=== PATIENT | female | born 1985 | race Caucasian/White ===

== ENCOUNTER 2016-11-12 16:51 | Emergency (ER) | payer OTHER ==
[~2016-11-12] VITALS: Ht 167.6 cm; Wt 68.0 kg
[~2016-11-12 16:51] MED LIST: ULT50 PO; [UNRECOGNIZED DRUG - REMARK]
[2016-11-12 16:58] VITALS: Ht 167.6 cm; Wt 68.0 kg
[2016-11-12] MEDS ORDERED: LIDOCAINE/MYLANTA 40 ML BTL PO ONE (18:30)
--- NOTE | 2016-11-12 18:31 | ERD ---
ER Documentation Chief Complaint Date/Time DATE: 11/12/16 TIME: 18:29 Chief Complaint lower abdominal pain today HPI 31-year-old female otherwise healthy complains of epigastric abdominal pain that started yesterday. Pain is described as achy, 10 sharp and radiates to the lower abdomen. She states that she is not taking anything for pain given the decrease in appetite. She has not had any fever, chills, nausea, vomiting or diarrhea. She reports mild constipation, she has not had any bowel movements today. ROS All systems reviewed and are negative except as per history of present illness. Medications Home Meds Active Scripts Nitrofurantoin Monohyd Macrocr* (Macrobid*) 100 Mg Capsr, 100 MG PO BID for 7 Days, CAP Prov:CLARITZA SILVA PA-C 11/12/16 Ranitidine Hcl* (Zantac*) 150 Mg Tablet, 150 MG PO BID Y for EPIGASTRIC PAIN, # 30 TAB Prov:CLARITZA SILVA PA-C 11/12/16 Tramadol HCl (Tramadol HCl) 50 Mg Tab, 50 MG PO Q4 Y for PAIN, #10 TAB Prov:CLARITZA SILVA PA-C 04/11/15 Reported Medications [pt denies meds & allergies] No Conflict Check 10/27/13 Allergies Allergies: Coded Allergies: No Known Allergy (Unverified , 10/27/13) PMhx/Soc Medical and Surgical Hx: pt denies Medical Hx History of Surgery: Yes (inguinal hernia) Anesthesia Reaction: No Hx Neurological Disorder: No Hx Respiratory Disorders: No Hx Cardiac Disorders: No Hx Psychiatric Problems: Yes (anxiety) Hx Miscellaneous Medical Probl: No Hx Alcohol Use: No Hx Substance Use: No Hx Tobacco Use: No Smoking Status: Never smoker Physical Exam Vitals Vital Signs Date Time Temp Pulse Resp B/P Pulse Ox O2 Delivery O2 Flow Rate FiO2 11/12/16 16:58 98.3 77 18 123/56 98 Physical Exam General: Well-developed, well-nourished. The patient appears in no acute distress. HEENT: Head is normocephalic, atraumatic. No scleral icterus. Pupils are equal , round, and reactive. Oral mucous membranes are moist. No pharyngeal erythema. Neck: Supple. Nontender. Lungs: Clear to auscultation. Normal air movement. Heart: Regular rate and rhythm. S1 and S2 are normal. No murmurs, gallops, or rubs. Abdomen: Soft, mildly tender in the epigastric region, no peritoneal signs, guarding or masses, nondistended. Bowel sounds are normoactive. Negative Hernandez sign. No McBurney's tenderness. Extremities: No clubbing or cyanosis. Normal pulses. Moving extremities x 4. No weakness. Neurologic: Alert and oriented 3. No focal deficits. Skin: Normal turgor. No rash or lesions. Result Diagram: 11/12/16183411/12/161834 Results 24 hrs Laboratory Tests Test 11/12/16 18:35 11/12/16 18:40 Alanine Aminotransferase (ALT/SGPT) 19IU/L Albumin 4.1g/dl Albumin/Globulin Ratio 1.24 Alkaline Phosphatase 47IU/L Anion Gap 14 Aspartate Amino Transf (AST/SGOT) 16IU/L Basophils # 0.110^3/ul Basophils % 0.9% Blood Morphology Comment Blood Urea Nitrogen 15mg/dl Calcium Level 9.1mg/dl Carbon Dioxide Level 29mmol/L Chloride Level 103mmol/L Creatinine 0.63mg/dl Direct Bilirubin 0.00mg/dl Eosinophils # 0.210^3/ul Eosinophils % 3.0% Globulin 3.30g/dl Glucose Level 83mg/dl Hematocrit 29.0% Hemoglobin 9.8g/dl Indirect Bilirubin 0.0mg/dl Lipase 59U/L Lymphocytes # 1.810^3/ul Lymphocytes % 25.3% Mean Corpuscular Hemoglobin 28.2pg Mean Corpuscular Hemoglobin Concent 33.9g/dl Mean Corpuscular Volume 83.2fl Mean Platelet Volume 7.7fl Monocytes # 0.510^3/ul Monocytes % 7.5% Neutrophils # 4.410^3/ul Neutrophils % 63.3% Nucleated Red Blood Cells # 0.010^3/ul Nucleated Red Blood Cells % 0.0/100WBC Platelet Count 51359^3/UL Potassium Level 4.4mmol/L Red Blood Count 3.4810^6/ul Red Cell Distribution Width 15.7% Sodium Level 142mmol/L Total Bilirubin 0.0mg/dl Total Protein 7.4g/dl White Blood Count 6.910^3/ul Urine Amorphous Phosphates MANY Urine Bacteria FEW Urine Bilirubin NEGATIVE Urine Clarity CLOUDY Urine Color LT. YELLOW Urine Glucose NEGATIVE% Urine Hemoglobin NEGATIVE Urine Ketones TRACE Urine Leukocyte Esterase 1+ Urine Microscopic RBC NONE SEEN/HPF Urine Microscopic WBC 2-5/HPF Urine Nitrite NEGATIVE Urine Specific [place] 1.015 Urine Squamous Epithelial Cells MANY Urine Total Protein NEGATIVE Urine Urobilinogen 1.0 E.U./dL Urine pH 8.0 Current Medications Medications (Trade) Dose Ordered Sig/Feli Route PRN Reason Start Time Stop Time Status Last Admin Dose Admin Miscellaneous Medication (Gi Cocktail (2)) 40 ml ONCE ONCE PO 11/12/16 18:30 11/12/16 18:31 DC 11/12/16 18:40 Procedures/MDM ED course: Labs and urine were obtained. She was given a GI cocktail for pain. MDM: 31-year-old female comes with epigastric abdominal pain for 2 days, patient 's epigastric abdominal pain improved with a GI cocktail. She does have evidence of a urinary tract infection that can explain her suprapubic abdominal pain. In terms of evaluation of any surgical processes, she has no McBurney's tenderness, no rebound pain, no leukocytosis, fever, nausea, vomiting. Blood work was unremarkable, there is no leukocytosis, no electrolyte abnormalities. She was given a GI cocktail secondary to epigastric abdominal pain which improved her symptoms. I discussed return precautions regarding her suprapubic abdominal pain, she is to return if she has any radiating pain to the right lower quadrant, fever, nausea or vomiting or worsening pain. I doubt ovarian torsion, PID, cervicitis, bowel obstruction. She is to recheck abdominal pain in 8-12 hours. Departure Diagnosis: Primary Impression: Abdominal pain Additional Impression: UTI (urinary tract infection) Condition: CLARITZA Baron PA-C Nov 12, 2016 18:30
[2016-11-12 18:43] LABS: BASOPHIL # 0.1 10^3/ul (0.0-0.1); BASOPHILS % 0.9 % (0.0-2.0); EOSINOPHILS # 0.2 10^3/ul (0.0-0.5); HEMOGLOBIN 9.8 g/dl (12.0-16.0); LYMPHOCYTES # 1.8 10^3/ul (0.8-2.9); LYMPHOCYTES % 25.3 % (15.0-51.0); MEAN CORPUSCULAR HEMOGLOBIN 28.2 pg (29.0-33.0); MEAN CORPUSCULAR HGB CONC 33.9 g/dl (32.0-37.0); MEAN CORPUSCULAR VOLUME 83.2 fl (82.0-101.0); MEAN PLATELET VOLUME 7.7 fl (7.4-10.4); MONOCYTE # 0.5 10^3/ul (0.3-0.9); MONOCYTES % 7.5 % (0.0-11.0); NEUTROPHIL # 4.4 10^3/ul (1.6-7.5); NEUTROPHILS % 63.3 % (39.0-77.0); PLATELET COUNT 280 10^3/UL (140-440); RED BLOOD COUNT 3.48 10^6/ul (4.20-5.40); RED CELL DISTRIBUTION WIDTH 15.7 % (11.5-14.5); UNCORRECTED WBC 6.9 10^3/ul (4.8-10.8); WHITE BLOOD COUNT 6.9 10^3/ul (4.8-10.8)
[2016-11-12 18:51] LABS: CONDITION 1
[2016-11-12 18:52] LABS: LH ANALYZER COMMENTS 1
[2016-11-12 18:56] LABS: ALBUMIN 4.1 g/dl (3.3-4.9)
[2016-11-12 18:57] LABS: POTASSIUM 4.4 mmol/L (3.5-5.1)
[2016-11-12 18:59] LABS: ALBUMIN/GLOBULIN RATIO 1.24; CREATININE 0.63 mg/dl (0.44-1.00); TOTAL PROTEIN 7.4 g/dl (6.1-8.1)
[2016-11-12 19:00] LABS: CALCIUM 9.1 mg/dl (8.4-10.2)
[2016-11-12 19:02] LABS: ADD UMIC YES; URINE BILIRUBIN (Dip) NEGATIVE (NEGATIVE); URINE BLOOD (Dip) NEGATIVE (NEGATIVE); URINE COLOR LT. YELLOW (YELLOW); URINE GLUCOSE (Dip) NEGATIVE (NEGATIVE); URINE KETONES (Dip) TRACE (NEGATIVE); URINE LEUKOCYTE ESTERASE (Dip) 1+ (NEGATIVE); URINE NITRITE (Dip) NEGATIVE (NEGATIVE); URINE TOTAL PROTEIN (Dip) NEGATIVE (NEGATIVE); URINE UROBILINOGEN (Dip) 1.0 E.U./dL (0.1-1.0)
[2016-11-12 19:16] LABS: BACTERIA,URINE FEW; SQUAMOUS EPITHELIAL CELL,UR MANY; URINE RBCS NONE SEEN /HPF (0)
[2016-11-12] MEDS ORDERED: RANI150T9 PO (19:25)
[2016-11-12] MEDS ORDERED: NITR-58 PO (19:25)
[2016-11-12 19:44] VITALS: BP 109/55; PULSE 65; RESP 16; TEMP 98.4
== END 2016-11-12 19:45 | disposition home or self-care (01) ==
LOC: FTE 16:51
DX: R10.13 Epigastric pain (principal); N39.0 Urinary tract infection, site not specified
CPT/HCPCS: 80053; 81001; 83690; 85025; Z7502; Z7610; 81003; 99283

== ENCOUNTER 2016-11-16 17:13 | Emergency (ER) | payer OTHER ==
[~2016-11-16] VITALS: Wt 62.7 kg
[~2016-11-16 17:13] MED LIST changes: +NITR-58 PO; +RANI150T9 PO
[2016-11-16] MEDS ORDERED: morphine 4 MG/ML VIAL IV STA (18:10)
[2016-11-16] MEDS ORDERED: ONDANSETRON 4 MG INJ IV STA (18:10)
[2016-11-16 18:47] LABS: URINE BLOOD (Dip) POC 1+ (NEGATIVE)
--- NOTE | 2016-11-16 18:59 | ERD ---
ER Documentation Chief Complaint Date/Time DATE: 11/16/16 TIME: 18:56 Chief Complaint abd pain with nausea and vomiting for the past few days. not better HPI This patient is a 31-year-old female presenting to the emergency department for right lower quadrant pain which is been ongoing for 5 days. Currently she states the pain is 8 out of 10 and nonradiating. Additionally she reports nausea and constipation but no fevers, vomiting, or chills. She has been able to eat and drink okay. She was seen here 4 days ago and was diagnosed with UTI and is taking antibiotics currently. There are no other alleviating or exacerbating factors at this time. ROS All systems reviewed and are negative except as per history of present illness. Medications Home Meds Active Scripts Cephalexin* (Keflex*) 500 Mg Capsule, 500 MG PO QID for 5 Days, CAP Prov:MALINI JETER PA-C 11/16/16 Sulfamethoxazole-Trimethoprim* (Bactrim* DS) 800-160 Mg Tab, 1 TAB PO BID for 7 Days, TAB Prov:MALINI JETER PA-C 11/16/16 Nitrofurantoin Monohyd Macrocr* (Macrobid*) 100 Mg Capsr, 100 MG PO BID for 7 Days, CAP Prov:CLARITZA SILVA PA-C 11/12/16 Ranitidine Hcl* (Zantac*) 150 Mg Tablet, 150 MG PO BID Y for EPIGASTRIC PAIN, # 30 TAB Prov:CLARITZA SILVA PA-C 11/12/16 Tramadol HCl (Tramadol HCl) 50 Mg Tab, 50 MG PO Q4 Y for PAIN, #10 TAB Prov:CLARITZA SILVA PA-C 04/11/15 Reported Medications [pt denies meds & allergies] No Conflict Check 10/27/13 Allergies Allergies: Coded Allergies: No Known Allergy (Unverified , 10/27/13) PMhx/Soc History of Surgery: Yes (inguinal hernia) Anesthesia Reaction: No Hx Neurological Disorder: No Hx Respiratory Disorders: No Hx Cardiac Disorders: No Hx Psychiatric Problems: Yes (anxiety) Hx Miscellaneous Medical Probl: No Hx Alcohol Use: No Hx Substance Use: No Hx Tobacco Use: No FmHx non-contributory for chief complaint Physical Exam Vitals Vital Signs Date Time Temp Pulse Resp B/P Pulse Ox O2 Delivery O2 Flow Rate FiO2 11/16/16 17:20 98.5 81 20 122/72 100 Physical Exam Const: The patient is resting comfortably in no acute distress. Head: Atraumatic Eyes: Normal Conjunctiva ENT: Normal External Ears, Nose and Mouth. Neck: Full range of motion. No meningismus. Resp: Clear to auscultation bilaterally Cardio: Regular rate and rhythm, no murmurs Abd: The abdomen is soft, nondistended, there is mild tenderness to palpation of the right lower quadrant. There is no rebound tenderness or guarding. Skin: No petechiae or rashes Back: No midline or flank tenderness Ext: No cyanosis, or edema Neur: Awake and alert Psych: Normal Mood and Affect Result Diagram: 11/16/16184911/16/161849 Results 24 hrs Laboratory Tests Test 11/16/16 18:47 11/16/16 18:50 Bedside Urine Blood 1+ Bedside Urine Glucose (UA) Negative Bedside Urine Ketones (LAB) Negative Bedside Urine Leukocyte Esterase (L Trace Bedside Urine Nitrite (LAB) Negative Bedside Urine Protein (LAB) Negative Bedside Urine pH (LAB) 6.5 Alanine Aminotransferase (ALT/SGPT) 18IU/L Albumin 4.6g/dl Albumin/Globulin Ratio 1.24 Alkaline Phosphatase 52IU/L Anion Gap 16 Aspartate Amino Transf (AST/SGOT) 14IU/L Basophils # 0.010^3/ul Basophils % 0.6% Blood Morphology Comment Blood Urea Nitrogen 15mg/dl Calcium Level 9.0mg/dl Carbon Dioxide Level 26mmol/L Chloride Level 105mmol/L Creatinine 0.61mg/dl Direct Bilirubin 0.00mg/dl Eosinophils # 0.110^3/ul Eosinophils % 1.8% Globulin 3.70g/dl Glucose Level 84mg/dl Hematocrit 31.6% Hemoglobin 10.6g/dl Indirect Bilirubin 0.0mg/dl Lipase 72U/L Lymphocytes # 2.610^3/ul Lymphocytes % 35.5% Mean Corpuscular Hemoglobin 27.7pg Mean Corpuscular Hemoglobin Concent 33.5g/dl Mean Corpuscular Volume 82.5fl Mean Platelet Volume 8.2fl Monocytes # 0.410^3/ul Monocytes % 5.0% Neutrophils # 4.210^3/ul Neutrophils % 57.1% Nucleated Red Blood Cells # 0.010^3/ul Nucleated Red Blood Cells % 0.0/100WBC Platelet Count 27241^3/UL Potassium Level 4.0mmol/L Red Blood Count 3.8210^6/ul Red Cell Distribution Width 15.6% Sodium Level 143mmol/L Total Bilirubin 0.0mg/dl Total Protein 8.3g/dl Urine Bacteria FEW Urine Bilirubin NEGATIVE Urine Clarity CLEAR Urine Color LT. YELLOW Urine Epithelial Cells FEW Urine Glucose NEGATIVE% Urine Hemoglobin 1+ Urine Ketones NEGATIVE Urine Leukocyte Esterase 1+ Urine Microscopic RBC 2-5/HPF Urine Microscopic WBC 2-5/HPF Urine Nitrite NEGATIVE Urine Specific [place] 1.015 Urine Total Protein NEGATIVE Urine Urobilinogen 0.2 E.U./dL Urine pH 6.0 White Blood Count 7.310^3/ul Current Medications Medications (Trade) Dose Ordered Sig/Feli Route PRN Reason Start Time Stop Time Status Last Admin Dose Admin Morphine Sulfate (morphine) 4 mg ONCE STAT IV 11/16/16 18:10 11/16/16 18:14 DC 11/16/16 18:38 Ondansetron HCl (Zofran Inj) 4 mg ONCE STAT IV 11/16/16 18:10 11/16/16 18:14 DC 11/16/16 18:38 IV Flush 10 ml 10 ml STK-MED ONCE .ROUTE 11/16/16 19:28 11/16/16 19:29 DC 11/16/16 19:37 Sodium Chloride (NS) 100 ml @ ud STK-MED ONCE .ROUTE 11/16/16 19:28 11/16/16 19:29 DC 11/16/16 19:37 Iohexol 150 ml 150 ml STK-MED ONCE .ROUTE 11/16/16 19:28 11/16/16 19:29 DC 11/16/16 19:38 Ceftriaxone Sodium (Rocephin) 50 ml @ 100 mls/hr ONCE ONCE IVPB 11/16/16 20:30 11/16/16 20:59 DC 11/16/16 20:23 Procedures/MDM ED course: Labs: No acute abnormalities noted. Imaging: CT scan of abd/pelvis with contrast: No evidence of abdominopelvic mass, lymphadenopathy or acute inflammatory pathology. Small fat containing left inguinal and periumbilical hernias, grossly unchanged. Medications: IV morphine given in the department for acute pain relief. IV Zofran given in the department for acute nausea relief. IV Rocephin given in the department for Urinary Tract infection. Reevaluation: The patient was feeling improved after IV Zofran and Morphine. MDM: 31-year-old female presenting to the emergency department with right lower quadrant abdominal pain for 5 days. She was seen here approximately 4 days ago and was diagnosed with urinary tract infection and is taking antibiotics. On physical examination the patient is tender to the RLQ without rebound tenderness or guarding. I have ordered a CT scan of the abdomen with contrast looking for signs of diverticulitis, appendicitis, bowel obstruction, and other acute abdominal emergencies. On review of the CT abdominal results, there were no signs of acute abdominal emergencies, however there weas an inguinal and umbilical hernia noted. After work up in the department, the patient's primary diagnosis is Abdominal Pain with uncertain etiology. The secondary diagnosis is Urinary Tract Infection. The results of the workup were shared with the patient and she was explained that her pain may be due to urinary tract infection, or, although unlikely, the hernias, gas, cramping, food allergy, or another uncertain cause. The patient was given referrals for GI and General Surgery, and she was instructed to follow up with her PCP at the next available appointment. She understands this information and her questions/concerns were addressed. The patient is stable for discharge. Departure Diagnosis: Primary Impression: Abdominal pain Additional Impression: Urinary tract infection Condition: Stable Additional Instructions: Follow-up with your primary care physician within 1 week. Return to the emergency department immediately should you have any new or worsening symptoms, uncontrolled fevers, or other unexplained symptoms. Take all medications as directed. MALINI JETER PA-C Nov 16, 2016 18:59
[2016-11-16 19:00] LABS: ADD UMIC YES; URINE BILIRUBIN (Dip) NEGATIVE (NEGATIVE); URINE BLOOD (Dip) 1+ (NEGATIVE); URINE COLOR LT. YELLOW (YELLOW); URINE GLUCOSE (Dip) NEGATIVE (NEGATIVE); URINE KETONES (Dip) NEGATIVE (NEGATIVE); URINE LEUKOCYTE ESTERASE (Dip) 1+ (NEGATIVE); URINE NITRITE (Dip) NEGATIVE (NEGATIVE); URINE TOTAL PROTEIN (Dip) NEGATIVE (NEGATIVE); URINE UROBILINOGEN (Dip) 0.2 E.U./dL (0.1-1.0)
[2016-11-16 19:04] LABS: BASOPHILS % 0.6 % (0.0-2.0); EOSINOPHILS # 0.1 10^3/ul (0.0-0.5); EOSINOPHILS % 1.8 % (0.0-7.0); HEMATOCRIT 31.6 % (37.0-47.0); HEMOGLOBIN 10.6 g/dl (12.0-16.0); LYMPHOCYTES # 2.6 10^3/ul (0.8-2.9); LYMPHOCYTES % 35.5 % (15.0-51.0); MEAN CORPUSCULAR HEMOGLOBIN 27.7 pg (29.0-33.0); MEAN CORPUSCULAR HGB CONC 33.5 g/dl (32.0-37.0); MEAN CORPUSCULAR VOLUME 82.5 fl (82.0-101.0); MEAN PLATELET VOLUME 8.2 fl (7.4-10.4); MONOCYTE # 0.4 10^3/ul (0.3-0.9); NEUTROPHIL # 4.2 10^3/ul (1.6-7.5); NEUTROPHILS % 57.1 % (39.0-77.0); PLATELET COUNT 295 10^3/UL (140-440); RED BLOOD COUNT 3.82 10^6/ul (4.20-5.40); RED CELL DISTRIBUTION WIDTH 15.6 % (11.5-14.5); UNCORRECTED WBC 7.3 10^3/ul (4.8-10.8); WHITE BLOOD COUNT 7.3 10^3/ul (4.8-10.8)
[2016-11-16 19:09] LABS: ALBUMIN 4.6 g/dl (3.3-4.9); BACTERIA,URINE FEW; CONDITION 1; LH ANALYZER COMMENTS 1
[2016-11-16 19:12] LABS: ALBUMIN/GLOBULIN RATIO 1.24; CREATININE 0.61 mg/dl (0.44-1.00); TOTAL PROTEIN 8.3 g/dl (6.1-8.1)
[2016-11-16] MEDS ORDERED: SOD CHLORIDE 0.9% 100 ML ONE (19:28)
[2016-11-16] MEDS ORDERED: IOHEXOL 300MG/ML 150 ML BTL ONE (19:28)
--- NOTE | 2016-11-16 20:05 | RADRPT ---
PROCEDURE: CT Abdomen and Pelvis with contrast. CLINICAL INDICATION: Abdominal pain. TECHNIQUE: Multiple contiguous axial CT images of the abdomen and pelvis were obtained following t he administration of 100 cc of Omnipaque-300. Coronal and sagittal reconstructions were also perfor med. CTDIvol (mGy): 7.61; Total Exam DLP (mGy-cm): 465.27. One or more of the following dose reduction techniques were utilized: - Automated exposure control. - Adjustment of the mA and/or kV according to patient size. - Use of iterative reconstruction technique. COMPARISON: Pelvic ultrasound 10/27/2013. CT abdomen/pelvis 10/27/2013. FINDINGS: Limited imaging of the lower thorax is unremarkable. The liver and spleen are homogeneous in enhancement. There is a small simple cyst within the right h epatic lobe. The gallbladder, pancreas and adrenal glands are unremarkable. The kidneys are symmetric in size and enhancement. There is no hydronephrosis or abnormal perinephr ic inflammation. There are no ureteral stones. The abdominal aorta is normal in caliber. There is no periaortic / retroperitoneal lymphadenopathy. The stomach and small and large intestines are unremarkable. The appendix is normal. There are no focal inflammatory changes of the mesentery. There is no mesenteric lymphadenopathy. There is no a scites. The bladder is partially distended and normal in contour. The uterus and left adnexa are unremarkab le. There is a small 2.1 cm corpus luteal cyst of the right ovary. There is a small amount of free fluid. There is no pelvic sidewall or inguinal lymphadenopathy. There is a small fat containing left inguinal hernia and small fat containing periumbilical hernia, both of which are grossly unchanged from prior examination. Skeletal structures are unremarkable. IMPRESSION: No evidence of abdominopelvic mass, lymphadenopathy or acute inflammatory pathology. Small fat containing left inguinal and periumbilical hernias, grossly unchanged. RPTAT: [facility] .Ashli Bond MD, Date Time Electronically viewed and signed by .Ashli Bond MD, MD on 11/16/2016 20:05 .T/
[2016-11-16] MEDS ORDERED: BACTDS PO (20:15)
[2016-11-16] MEDS ORDERED: CEPH-443 PO (20:15)
[2016-11-16] MEDS ORDERED: CEFTRIAXONE 1 GM/50 ML (PMX) 50 ML IVPB ONE (20:30)
== END 2016-11-16 20:54 | disposition home or self-care (01) ==
LOC: FTE 17:13
DX: R10.31 Right lower quadrant pain (principal); R11.2 Nausea with vomiting, unspecified
CPT/HCPCS: 36415; 74177; 80053; 81001; 81003; 83690; 85025; 96365; 96375; J0696; J2270; J2405; Q9967; Z7502; Z7610

== ENCOUNTER 2016-12-15 17:03 | Emergency (ER) | payer OTHER ==
[~2016-12-15] VITALS: Wt 64.5 kg
[~2016-12-15 17:03] MED LIST changes: +BACTDS PO; +CEPH-443 PO; +TRAM50TA2 PO; -ULT50 PO
[2016-12-15] MEDS ORDERED: CETI10CA PO (17:50)
[2016-12-15] MEDS ORDERED: GUAI118L22 PO (17:50)
--- NOTE | 2016-12-15 17:56 | ERD ---
ER Documentation Chief Complaint Date/Time DATE: 12/15/16 TIME: 17:55 Chief Complaint fever cough and sore throat and guzman since yesterday. HPI 31-year-old female comes in with tactile fevers, cough, sore throat and rhinorrhea that started yesterday. She has had a frontal headache as well. No shortness breath, no chest pain. She does work and her coworkers she reports are having URI symptoms. ROS All systems reviewed and are negative except as per history of present illness. Medications Home Meds Active Scripts Cetirizine Hcl* (Zyrtec*) 10 Mg Capsule, 10 MG PO DAILY, #15 TAB.CHEW Prov:CLARITZA SILVA PA-C 12/15/16 Guaifenesin/Codeine Phosphate (CHERATUSSIN AC SYRUP) 118 Ml Liquid, 5 ML PO Q4H Y for COUGH, #118 ML Prov:CLARITZA SILVA PA-C 12/15/16 Cephalexin* (Keflex*) 500 Mg Capsule, 500 MG PO QID for 5 Days, CAP Prov:MALINI JETER PA-C 11/16/16 Sulfamethoxazole-Trimethoprim* (Bactrim* DS) 800-160 Mg Tab, 1 TAB PO BID for 7 Days, TAB Prov:MALINI JETER PA-C 11/16/16 Nitrofurantoin Monohyd Macrocr* (Macrobid*) 100 Mg Capsr, 100 MG PO BID for 7 Days, CAP Prov:CLARITZA SILVA PA-C 11/12/16 Ranitidine Hcl* (Zantac*) 150 Mg Tablet, 150 MG PO BID Y for EPIGASTRIC PAIN, # 30 TAB Prov:CLARITZA SILVA PA-C 11/12/16 Tramadol HCl (Tramadol HCl) 50 Mg Tab, 50 MG PO Q4 Y for PAIN, #10 TAB Prov:CLARITZA SILVA PA-C 04/11/15 Reported Medications [pt denies meds & allergies] No Conflict Check 10/27/13 Allergies Allergies: Coded Allergies: No Known Allergy (Unverified , 10/27/13) PMhx/Soc History of Surgery: Yes (inguinal hernia) Anesthesia Reaction: No Hx Neurological Disorder: No Hx Respiratory Disorders: No Hx Cardiac Disorders: No Hx Psychiatric Problems: Yes (anxiety) Hx Miscellaneous Medical Probl: No Hx Alcohol Use: No Hx Substance Use: No Hx Tobacco Use: No Physical Exam Vitals Vital Signs Date Time Temp Pulse Resp B/P Pulse Ox O2 Delivery O2 Flow Rate FiO2 12/15/16 17:11 98.8 80 20 136/58 99 Physical Exam General: Well-developed, well-nourished. The patient appears in no acute distress. HEENT: Head is normocephalic, atraumatic. No scleral icterus. Pupils are equal , round, and reactive. Oral mucous membranes are moist. No pharyngeal erythema. Neck: Supple. Nontender. Lungs: Clear to auscultation. Normal air movement. Heart: Regular rate and rhythm. S1 and S2 are normal. No murmurs, gallops, or rubs. Abdomen: Soft, nontender, nondistended. Bowel sounds are normoactive. Extremities: No clubbing or cyanosis. Normal pulses. Moving extremities x 4. No weakness. Neurologic: Alert and oriented 3. No focal deficits. Skin: Normal turgor. No rash or lesions. Procedures/MDM The patient is a 31-year-old female who comes in with an acute upper respiratory infection, presumed viral. The patient has a differential diagnosis of a viral upper respiratory infection, bacterial upper respiratory infection, bronchitis, pneumonia, pharyngitis, laryngitis, epiglottitis, croup, pneumonia. Patient has a normal pulmonary examination, clear breath sounds, normal pulse oximetry, with no corrective measures needed at this time. Fluids, rest, antipyretics were encouraged. Departure Diagnosis: Primary Impression: Acute URI Condition: Good Patient Instructions: Uri, Viral, No Abx (Adult) Additional Instructions: Call your primary care doctor TOMORROW for an appointment during the next 1-2 days.See the doctor sooner or return here if your condition worsens before your appointment time. CLARITZA SILVA PA-C Dec 15, 2016 17:56
== END 2016-12-15 17:55 | disposition home or self-care (01) ==
LOC: FTE 17:03
DX: J06.9 Acute upper respiratory infection, unspecified (principal)
CPT/HCPCS: 99283

== ENCOUNTER 2018-01-02 10:40 | Emergency (ER) | END 2018-01-02 11:40 | disposition left against medical advice (07) ==